=== PATIENT | male | born 1940 | race Caucasian/White ===

== ENCOUNTER 2022-08-28 19:33 | Emergency (ER) | payer OTHER ==
[~2022-08-28] VITALS: Ht 182.9 cm; Wt 94.3 kg
--- NOTE | 2022-08-28 20:00 | NUR ---
Patient a/o x 4. NAD noted.
[2022-08-28 20:07] LABS: HEMATOCRIT 48.8 % (36.7-47.1); MEAN CORPUSCULAR HEMOGLOBIN 30.4 uug (23.8-33.4); MEAN CORPUSCULAR VOLUME 93.8 fL (73.0-96.2); PLATELET COUNT (AUTO) 189 K/uL (152-348)
[2022-08-28] MEDS ORDERED: NITROGLYCERIN OINT 1 GM PACKET TP ONE (20:15)
[2022-08-28] MEDS ORDERED: METOPROLOL TARTRATE 50 MG TABLET PO ONE (20:15)
[2022-08-28] MEDS ORDERED: ASPIRIN 81 MG TAB.CHEW PO ONE (20:15)
[2022-08-28 20:27] LABS: CARBON DIOXIDE 28 mmol/L (21-32); CHLORIDE 104 mmol/L (98-107); CREATININE 1.4 mg/dL (0.6-1.3); GLUCOSE 129 mg/dL (74-106); POTASSIUM 3.3 mmol/L (3.5-5.1); UREA NITROGEN, BLOOD 20 mg/dL (7-18)
[2022-08-28] MEDS ORDERED: POTASSIUM BICARBONATE/CIT AC 25 MEQ TABLET.EFF PO ONE (21:45)
[2022-08-28] MEDS ORDERED: POTASSIUM BICARBONATE/CIT AC 25 MEQ TABLET.EFF ONE (22:02)
--- NOTE | 2022-08-29 00:23 | NUR ---
Patient discharged to home in stable condition. A/O x 4. NAD noted. Ambulatory with a steady gait. Written and verbal after care instructions given. Patient verbalizes understanding of instructions. Stressed follow up or return to ER for worsening s/s.
[2022-08-29 00:26] VITALS: BP 148/95
== END 2022-08-29 00:23 | disposition home or self-care (01) ==
LOC: ER 19:33
DX: R07.89 Other chest pain (principal); E87.6 Hypokalemia; I49.1 Atrial premature depolarization; I10 Essential (primary) hypertension; R00.0 Tachycardia, unspecified; Z88.0 Allergy status to penicillin; E78.00 Pure hypercholesterolemia, unspecified
CPT/HCPCS: 36415; 71045; 83605; 83735; 84484; 85025; 93005; A4663